=== PATIENT | male | born 1980 ===

== ENCOUNTER 2019-12-01 06:00 | Day surgery (SDC) | payer OTHER | END 2019-12-01 18:15 | disposition home or self-care (01) | LOC: CIR.AMB 06:00 → ADM 08:15 → CIR.AMB 10:00 | PROVIDERS: ATTEND Urology | DX: I86.1 Scrotal varices (principal) ==

== ENCOUNTER → 2020-01-26 11:54 | Outpatient (CLI) | payer OTHER | END | disposition home or self-care (01) | LOC: LAB 11:54 | PROVIDERS: ATTEND General Practice | DX: J11.1 Influenza due to unidentified influenza virus with other respiratory manifestations (principal); J06.9 Acute upper respiratory infection, unspecified; R05 Cough; Z11.59 Encounter for screening for other viral diseases ==